=== PATIENT | male | born 1995 ===

== ENCOUNTER 2019-02-18 02:52 | Emergency (ER) | payer SELFPAY ==
[2019-02-18 03:11] VITALS: BP 120/77; PULSE 72; RESP 20; TEMP 98.4; O2SAT 97
--- NOTE | 2019-02-18 03:56 | C.PDOC ---
History Of Present Illness 23 year old male presents complaining of an ulcer to the right lateral leg for the past month. Patient sustained a cut to that area that did not heal and states tonight it began bleeding so he came in for evaluation. Patient has no other symptoms besides the ulcer. Denies Hx of diabetes or peripheral vascular disease. Time Seen by Provider: 02/18/19 03:10 Chief Complaint (Nursing): Abnormal Skin Integrity History Per: Patient History/Exam Limitations: no limitations Onset/Duration Of Symptoms: Hrs Current Symptoms Are (Timing): Still Present Location Of Injury: Right: Leg Quality Of Symptoms: Other (Bleeding) Recent travel outside of the [place]: No Past Medical History Reviewed: Historical Data, Nursing Documentation, Vital Signs Vital Signs: Last Vital Signs Temp 98.4 F 02/18/19 03:08 Pulse 72 02/18/19 03:08 Resp 20 02/18/19 03:08 BP 120/77 02/18/19 03:08 Pulse Ox 97 02/18/19 03:08 Primary Care Provider: FAMILY PROVIDER,NO Family History: States: Unknown Family Hx - Social History Hx Alcohol Use: No Hx Substance Use: No - Immunization History Hx Tetanus Toxoid Vaccination: No Hx Influenza Vaccination: No Hx Pneumococcal Vaccination: No Review Of Systems Constitutional: Negative for: Fever Musculoskeletal: Negative for: Leg Pain Skin: Positive for: Other (Bleeding ulcer) Physical Exam - Physical Exam Appears: Well, Non-toxic, No Acute Distress Skin: Warm Head: Atraumatic, Normacephalic Eye(s): bilateral: Normal Inspection Extremity: Other (Nonhealing ulcer to right lateral leg with darkened center. No surrounding erythema, no pus drainage, does not appear acutely infected. Remainder of right leg is normal.) Pulses: Left Dorsalis Pedis: Normal, Right Dorsalis Pedis: Normal Neurological/Psych: Oriented x3, Normal Speech Gait: Steady ED Course And Treatment O2 Sat by Pulse Oximetry: 97 (room air) Pulse Ox Interpretation: Normal Medical Decision Making Medical Decision Making: this wound does not appear acutely infected at this time. he will be referred to wound care specialty Disposition Counseled Patient/Family Regarding: Diagnosis, Need For Followup - Disposition [facility]errals: [facility]Outside] [facility] [place] [Outside] Disposition: HOME/ ROUTINE Disposition Time: 03:57 Condition: STABLE Instructions: Wound Care (DC) Forms: [facility] (Upper [place]), General Discharge Instructions - Clinical Impression Clinical Impression: Skin ulcer - Scribe Statement The provider has reviewed the documentation as recorded by the Scribindra Zuleta All medical record entries made by the Scribe were at my direction and personally dictated by me. I have reviewed the chart and agree that the record accurately reflects my personal performance of the history, physical exam, medical decision making, and the department course for this patient. I have also personally directed, reviewed, and agree with the discharge instructions and disposition.
== END 2019-02-18 04:18 | disposition home or self-care (01) ==
LOC: C.ER 02:52
DX: L97.819 Non-pressure chronic ulcer of other part of right lower leg with unspecified severity (principal)